=== PATIENT | female | born 1975 | race Two or more races ===

== ENCOUNTER → 2021-07-25 | Outpatient (CLI) | payer OTHER | END | disposition home or self-care (01) | LOC: LAB 12:42 | PROVIDERS: ATTEND Obstetrics & Gynecology | DX: N84.1 Polyp of cervix uteri (principal) | CPT/HCPCS: 88302 ==

== ENCOUNTER 2021-08-24 06:14 | Day surgery (SDC) | payer OTHER ==
[2021-08-22 11:51] LABS: Basophils # (auto) 0.1 10 ^3/uL (0-0.2); Basophils % (auto) 0.8 % (0.0-2.0); Eosinophils # (auto) 0.1 10 ^3/uL (0-0.8); Eosinophils % (auto) 1.3 % (0.0-7.0); Hematocrit 37.3 % (36.0-46.0); Hemoglobin 12.6 g/dL (12.2-16.2); Lymphocytes # (auto) 1.8 10 ^3/uL (0.4-5.4); Lymphocytes % (auto) 25.7 % (10.0-50.0); Mean Corpuscular Hemoglobin 29.3 pg (28.0-32.0); Mean Corpuscular Hgb Conc. 33.8 g/dL (32.0-36.0); Mean Corpuscular Volume 86.9 fL (80.0-100.0); Monocytes # (auto) 0.4 10 ^3/uL (0-1.3); Monocytes % (auto) 5.3 % (0.0-12.0); Neutrophils # (auto) 4.8 10 ^3/uL (1.6-8.6); Neutrophils % (auto) 66.9 % (37.0-80.0); Red Blood Cells 4.29 10^6/uL (4.0-5.20); Red Cell Distribution Width 16.1 % (11.8-14.3); White Blood Cell 7.2 10^3/uL (4.4-10.8)
[2021-08-22 12:15] LABS: Albumin 3.3 g/dL (3.4-5.0); Calcium 8.2 mg/dL (8.5-10.1); Partial Thromboplastin Time 25.1 sec (23.6-33.0); Potassium 3.6 mmol/L (3.5-5.1)
[2021-08-22 12:23] LABS: BUN/Creatinine Ratio 13.7; Bilirubin, Total 0.4 mg/dL (0.2-1.0); Total Protein 7.4 g/dL (6.4-8.2)
[~2021-08-24] VITALS: Ht 152.4 cm; Wt 74.8 kg
[~2021-08-24 06:14] MED LIST: NORE-35 PO
[2021-08-24] MEDS ORDERED: ceFAZolin 1GM/50ML 100 ML IV ONE (06:34)
[2021-08-24] MEDS ORDERED: SUCCINYLCHOLINE CHLORIDE 20 MG/ML 10ML VIAL IV ONE (07:05)
[2021-08-24] MEDS ORDERED: MIDAZOLAM HCL 2MG/2ML 2ml VIAL (1mg/ml) ONE (07:07)
[2021-08-24] MEDS ORDERED: fentaNYL CITRATE 100 MCG/2 ML VL ONE (07:07)
[2021-08-24] MEDS ORDERED: LIDOCAINE 2% (LOCAL ANESTH.) PF 5ml SDV ONE ×2 (07:11→08:33)
[2021-08-24] MEDS ORDERED: METOCLOPRAMIDE HCL 5MG/ml INJ 2ml VIAL ONE ×2 (07:11→08:34)
[2021-08-24] MEDS ORDERED: PROPOFOL 10 MG/ML 20 ML IV ONE ×2 (07:11→08:33)
[2021-08-24] MEDS ORDERED: DexAMETHasone SOD PHOS 10MG/1ML VIAL INJ ONE ×2 (07:11→08:34)
[2021-08-24] MEDS ORDERED: HYDR-4902 PO (07:26)
[2021-08-24] MEDS ORDERED: ONDA-144 PO (07:26)
[2021-08-24] MEDS ORDERED: LACTATED RINGER'S 1,000 ML IV SCH (08:30)
[2021-08-24] MEDS ORDERED: METOCLOPRAMIDE HCL 5MG/ml INJ 2ml VIAL IV PRN (08:30)
[2021-08-24] MEDS ORDERED: fentaNYL CITRATE 100 MCG/2 ML VL IV PRN (08:30)
[2021-08-24] MEDS ORDERED: ONDANSETRON HCL 4 MG/2 ML VIAL IV PRN ×2 (08:30)
[2021-08-24] MEDS ORDERED: HYDROmorphone HCL 2 MG/ML VL/or syr IV PRN (08:30)
[2021-08-24] MEDS ORDERED: ePHEDrine SULFATE 50 MG/ML AMP IV PRN (08:30)
[2021-08-24] MEDS ORDERED: ONDANSETRON HCL 4 MG/2 ML VIAL ONE (08:34)
[2021-08-24 09:00] VITALS: BP 124/79
== END 2021-08-24 09:00 | disposition home or self-care (01) ==
LOC: SUR 06:14
PROVIDERS: ATTEND Obstetrics & Gynecology
DX: N93.9 Abnormal uterine and vaginal bleeding, unspecified (principal); N85.00 Endometrial hyperplasia, unspecified; Z98.51 Tubal ligation status; Z83.3 Family history of diabetes mellitus; Z82.49 Family history of ischemic heart disease and other diseases of the circulatory system; Z20.822 Contact with and (suspected) exposure to COVID-19
CPT/HCPCS: 36415; 58563; 80053; 81025; 84702; 85025; 85610; 85730; 86850; 86900; 86901; 88305; J0330; J0690; J1100; J2001; J2250; J2405; J2704; J2765; J3010; U0003

== ENCOUNTER 2023-10-05 19:03 | Emergency (ER) | payer OTHER ==
[~2023-10-05] VITALS: Ht 152.4 cm; Wt 75.0 kg
[~2023-10-05 19:03] MED LIST changes: +HYDR-4902 PO; -NORE-35 PO; +NORE-79 PO; +ONDA-144 PO
[2023-10-05] MEDS ORDERED: PRED1DRO OP (23:57)
[2023-10-06 00:14] VITALS: BP 134/87; PULSE 86; RESP 18; TEMP 98.7; O2SAT 98
== END 2023-10-06 00:26 | disposition home or self-care (01) ==
LOC: ER 19:03
DX: Z76.0 Encounter for issue of repeat prescription (principal); Z79.899 Other long term (current) drug therapy